=== PATIENT | male | born 1985 ===

== ENCOUNTER 2020-07-23 11:25 | Emergency (ER) | payer SELFPAY ==
[2020-07-23 11:59] VITALS: BP 189/108
--- NOTE | 2020-07-23 14:33 | Emergency Department Report ---
ED General Adult HPI - General Chief complaint: Chest Pain Stated complaint: CP/BACK PAIN Time Seen by Provider: 07/23/20 13:49 Source: patient Mode of arrival: Ambulatory Limitations: No Limitations - History of Present Illness Initial comments: Is a pleasant 35-year-old male presents the emergency department with a chief complaint of pain in the center of his chest he describes a sharp and pain in the left lower back over the past 3 days. 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 He denies any shortness of breath, he does report having some sweats but denies any associated fever, chills, night sweats, headache, dizziness, blurry vision, nausea, vomiting, diarrhea, weakness or any other associated symptoms. He denies any known past medical history other than asthma which he denies any current medication use and denies any allergies to medications. He denies any previous surgeries. - Related Data Previous Rx's Medication Instructions Recorded Last Taken Type Albuterol Sulfate [Proair 90 mcg IH Q4HR #1 aer.pow.ba 07/23/20 Unknown Rx Respiclick] Azithromycin [Zithromax Z-SAMMIE] 0 mg PO DAILY #1 tab 07/23/20 Unknown Rx methylPREDNISolone [Medrol 4MG 4 mg PO DAILY #1 tab.ds.pk 07/23/20 Unknown Rx DOSEPAK (21 tabs)] Allergies Allergy/AdvReac Type Severity Reaction Status Date / Time No Known Allergies Allergy Verified 07/23/20 11:54 ED Review of Systems ROS: Stated complaint: CP/BACK PAIN Other details as noted in HPI Comment: All other systems reviewed and negative Constitutional: denies: chills, fever Eyes: denies: eye pain, eye discharge, vision change ENT: congestion. denies: ear pain Respiratory: denies: cough, shortness of breath, wheezing Cardiovascular: denies: chest pain, palpitations Endocrine: no symptoms reported Gastrointestinal: denies: abdominal pain, nausea, diarrhea Genitourinary: denies: urgency, dysuria Musculoskeletal: denies: back pain, joint swelling, arthralgia Skin: denies: rash, lesions Neurological: denies: headache, weakness, paresthesias Psychiatric: denies: anxiety, depression Hematological/Lymphatic: denies: easy bleeding, easy bruising ED Past Medical Hx - Past Medical History Previous Medical History?: No - Surgical History Past Surgical History?: No - Social History Smoking Status: Never Smoker Substance Use Type: None - Medications Home Medications: Home Medications Medication Instructions Recorded Confirmed Last Taken Type Albuterol Sulfate [Proair 90 mcg IH Q4HR #1 aer.pow.ba 07/23/20 Unknown Rx Respiclick] Azithromycin [Zithromax Z-SAMMIE] 0 mg PO DAILY #1 tab 07/23/20 Unknown Rx methylPREDNISolone [Medrol 4MG 4 mg PO DAILY #1 tab.ds.pk 07/23/20 Unknown Rx DOSEPAK (21 tabs)] ED Physical Exam - General Limitations: No Limitations General appearance: alert, in no apparent distress - Head Head exam: Present: atraumatic, normocephalic - Eye Eye exam: Present: normal appearance, PERRL, EOMI Pupils: Present: normal accommodation - ENT ENT exam: Present: normal exam, mucous membranes moist. Absent: normal orophraynx - Neck Neck exam: Present: normal inspection, full ROM, lymphadenopathy, other (Tender anterior cervical lymphadenopathy). Absent: tenderness - Respiratory Respiratory exam: Present: normal lung sounds bilaterally, wheezes (mild expiratory wheezing to right lung ), rhonchi (mild ronchi to left lung ), chest wall tenderness (TTP to anterior chest wall. ). Absent: respiratory distress, rales, stridor - Cardiovascular Cardiovascular Exam: Present: regular rate, normal rhythm, normal heart sounds. Absent: systolic murmur, diastolic murmur, rubs, gallop - GI/Abdominal GI/Abdominal exam: Present: soft, normal bowel sounds. Absent: distended, tenderness, guarding, rebound, rigid - Rectal Rectal exam: Present: deferred - Extremities Exam Extremities exam: Present: normal inspection, full ROM, normal capillary refill, calf tenderness (Negative Homans sign bilaterally.). Absent: tenderness - Back Exam Back exam: Present: normal inspection, full ROM. Absent: tenderness, CVA tenderness (R), CVA tenderness (L) - Neurological Exam Neurological exam: Present: alert, oriented X3, CN II-XII intact, normal gait. Absent: motor sensory deficit - Psychiatric Psychiatric exam: Present: normal affect, normal mood - Skin Skin exam: Present: warm, dry, intact, normal color. Absent: rash ED Course Vital Signs 07/23/20 11:57 Pulse Rate 89 Respiratory 16 Rate Blood Pressure 189/108 [Right] O2 Sat by Pulse 97 Oximetry ED Medical Decision Making - Lab Data Result diagrams: 07/23/20 14:16 07/23/20 14:16 Lab Results 07/23/20 07/23/20 Range/Units 14:16 14:16 WBC 6.9 (4.5-11.0) K/mm3 RBC 5.12 H (3.65-5.03) M/mm3 Hgb 16.2 H (11.8-15.2) gm/dl Hct 47.9 H (35.5-45.6) % MCV 94 (84-94) fl MCH 32 (28-32) pg MCHC 34 (32-34) % RDW 13.0 L (13.2-15.2) % Plt Count 226 (140-440) K/mm3 Lymph % (Auto) 26.2 (13.4-35.0) % [place] % (Auto) 6.7 (0.0-7.3) % Eos % (Auto) 4.0 (0.0-4.3) % Baso % (Auto) 0.7 (0.0-1.8) % Lymph # (Auto) 1.8 (1.2-5.4) K/mm3 [place] # (Auto) 0.5 (0.0-0.8) K/mm3 Eos # (Auto) 0.3 (0.0-0.4) K/mm3 Baso # (Auto) 0.0 (0.0-0.1) K/mm3 Seg Neutrophils % 62.4 (40.0-70.0) % Seg Neutrophils # 4.3 (1.8-7.7) K/mm3 Sodium 140 (137-145) mmol/L Potassium 3.9 (3.6-5.0) mmol/L Chloride 101.0 (98-107) mmol/L Carbon Dioxide 26 (22-30) mmol/L Anion Gap 17 mmol/L BUN 9 (9-20) mg/dL Creatinine 1.0 (0.8-1.3) mg/dL Estimated GFR > 60 ml/min BUN/Creatinine Ratio 9 % Glucose 124 H (75-100) mg/dL Calcium 9.6 (8.4-10.2) mg/dL Total Bilirubin 1.30 H (0.1-1.2) mg/dL AST 16 (5-40) units/L ALT 7 (7-56) units/L Alkaline Phosphatase 63 (35-129) units/L Troponin T < 0.010 (0.00-0.029) ng/mL Total Protein 7.2 (6.3-8.2) g/dL Albumin 4.4 (3.9-5) g/dL Albumin/Globulin Ratio 1.6 % - EKG Data Rate: normal (Normal sinus rhythm with a ventricular rate of 78 bpm, no STEMI, normal axis, normal intervals, LVH.) - EKG Data When compared to previous EKG there are: no significant change Interpretation: LVH - Radiology Data Radiology results: report reviewed, image reviewed XRay Report Signed Patient: SMITH HARDEN MR#: [id number] : 1985 Acct:[id number] Age/Sex: 35 / M ADM Date: 07/23/20 Loc: ED Attending Dr: Ordering Physician: CHINYERE MANDEL Date of Service: 07/23/20 Procedure(s): XR spine lumbosacral 2-3V Accession Number(s): [id number] cc: CHINYERE MANDEL Fluoro Time In Minutes: LUMBAR SPINE, 3 VIEWS INDICATION / CLINICAL INFORMATION: Lower back pain. COMPARISON: None available. FINDINGS: Vertebral body heights and disc spaces are well-preserved. Alignment is normal. No evidence of fracture or traumatic malalignment. No significant degenerative change. IMPRESSION: No significant osseous abnormality. Signer Name: Yee Maher MD Signed: 07/23/2020 2:58 PM Workstation Name: [email or web address] XRay Report Signed Patient: SMITH HARDEN MR#: [id number] : 1985 Acct:[id number] Age/Sex: 35 / M ADM Date: 07/23/20 Loc: ED Attending Dr: Ordering Physician: CHINYERE MANDEL Date of Service: 07/23/20 Procedure(s): XR chest routine 2V Accession Number(s): [id number] cc: CHINYERE MANDEL Fluoro Time In Minutes: CHEST 2 VIEWS INDICATION / CLINICAL INFORMATION: . Chest pain, shortness of breath COMPARISON: None available. FINDINGS: SUPPORT DEVICES: None. HEART / MEDIASTINUM: No significant abnormality. LUNGS / PLEURA: No significant pulmonary or pleural abnormality. No pneumothorax. ADDITIONAL FINDINGS: No significant additional findings. IMPRESSION: 1. No significant abnormality. Signer Name: Yee Maher MD Signed: 07/23/2020 3:00 PM Workstation Name: [id number] Transcribed By: JR Dictated By: Yee Maher MD Electronically Authenticated By: Yee Maher MD Signed Date/Time: 07/23/20 1500 - Medical Decision Making Patient nontoxic in no acute distress. EKG was relatively normal other than LVH. Troponin was negative. Patient is a low risk for ACS. Chest x-ray was clear showing no signs of pneumonia or pneumothorax. Patient had a normal- appearing mediastinum with no tearing or ripping pain to his back and normal eq ual radial pulses making acute aortic dissection unlikely. Patient is PERC negative and a low risk by Wells criteria making PE unlikely. The patient did have some mild wheezing on exam and some reproducible chest pain which I think is likely source of his pain. I will discharge him with a steroid, inhaler and recommended outpatient follow-up with his primary care doctor. He was instructed to return the emerge part if he develops any change or worsening symptoms. He verbalized understanding the diagnosis, treatment plan and follow- up instructions and all his questions were answered. - Differential Diagnosis Chest wall pain, ACS, PE, pneumonia Critical care attestation.: If time is entered above; I have spent that time in minutes in the direct care of this critically ill patient, excluding procedure time. ED Disposition Clinical Impression: Asthmatic bronchitis Qualifiers: Asthma severity: mild Asthma persistence: intermittent Asthma complication type: with acute exacerbation Qualified Code(s): J45.21 - Mild intermittent asthma with (acute) exacerbation Disposition: DC-01 TO HOME OR SELFCARE Is pt being admited?: No Condition: Stable Instructions: Acute Bronchitis (ED) Prescriptions: methylPREDNISolone [Medrol 4MG DOSEPAK (21 tabs)] 4 mg PO DAILY #1 tab.ds.pk Albuterol Sulfate [Proair Respiclick] 90 mcg IH Q4HR #1 aer.pow.ba Azithromycin [Zithromax Z-SAMMIE] 0 mg PO DAILY #1 tab Referrals: PRIMARY CARE, [Primary Care Provider] - 3-5 Days [facility] [Provider Group] - 3-5 Days Forms: Work/School Release Form(ED) Time of Disposition: 15:19
[2020-07-23 14:48] LABS: Basophils % (Auto) 0.7 % (0.0-1.8); Eosinophils # (Auto) 0.3 K/mm3 (0.0-0.4); Hematocrit 47.9 % (35.5-45.6); Hemoglobin 16.2 gm/dl (11.8-15.2); Lymphocytes # (Auto) 1.8 K/mm3 (1.2-5.4); Lymphocytes % (Auto) 26.2 % (13.4-35.0); Mean Corpuscular HGB Conc 34 % (32-34); Mean Corpuscular Volume 94 fl (84-94); Monocytes # (Auto) 0.5 K/mm3 (0.0-0.8); Monocytes % (Auto) 6.7 % (0.0-7.3); Platelet Count 226 K/mm3 (140-440); Red Blood Count 5.12 M/mm3 (3.65-5.03)
[2020-07-23 14:58] LABS: Alanine Aminotransferase 7 units/L (7-56); Albumin 4.4 g/dL (3.9-5); BUN/Creatinine Ratio 9; Blood Urea Nitrogen 9 mg/dL (9-20); Calcium 9.6 mg/dL (8.4-10.2); Hemolysis Index 18
--- NOTE | 2020-07-23 15:04 | XRay Report ---
LUMBAR SPINE, 3 VIEWS INDICATION / CLINICAL INFORMATION: Lower back pain. COMPARISON: None available. FINDINGS: Vertebral body heights and disc spaces are well-preserved. Alignment is normal. No evidence of fractu re or traumatic malalignment. No significant degenerative change. IMPRESSION: No significant osseous abnormality. Signer Name: Yee Maher MD Signed: 07/23/2020 2:58 PM Workstation Name: [id number]
--- NOTE | 2020-07-23 15:04 | XRay Report ---
CHEST 2 VIEWS INDICATION / CLINICAL INFORMATION: . Chest pain, shortness of breath COMPARISON: None available. FINDINGS: SUPPORT DEVICES: None. HEART / MEDIASTINUM: No significant abnormality. LUNGS / PLEURA: No significant pulmonary or pleural abnormality. No pneumothorax. ADDITIONAL FINDINGS: No significant additional findings. IMPRESSION: 1. No significant abnormality. Signer Name: Yee Maher MD Signed: 07/23/2020 3:00 PM Workstation Name: [id number]
== END 2020-07-23 15:29 | disposition home or self-care (01) ==
LOC: ED 11:25
DX: J45.909 Unspecified asthma, uncomplicated (principal); Z79.899 Other long term (current) drug therapy
CPT/HCPCS: 36415; 71046; 72100; 80053; 84484; 85025; 93005; 99283